=== PATIENT | female | born 1995 | race Caucasian/White ===

== ENCOUNTER → 2021-07-15 | Outpatient (CLI) | payer OTHER | LOC: RAD 07:27 | DX: M25.511 Pain in right shoulder (principal) | CPT/HCPCS: 73040; 73201; Q9967 ==

== ENCOUNTER → 2021-09-02 | Outpatient (CLI) | payer OTHER | LOC: MRI 08-26 14:00 | DX: K86.9 Disease of pancreas, unspecified (principal) | CPT/HCPCS: 74183; A9577 ==